=== PATIENT | male | born 1970 | race Caucasian/White ===

== ENCOUNTER 2018-10-23 05:59 | Outpatient (CLI) | payer OTHER ==
[~2018-10-23] VITALS: Ht 185.4 cm; Wt 83.9 kg
[~2018-10-23 05:59] MED LIST: CIPR500S2 PO; FEXO180T84 PO; HYDR-91 PO; HYOS0.1217 PO; METH4TAB PO; PHEN200T27 PO; TRM50T PO
[2018-10-23] MEDS ORDERED: CETI1TAB PO (10:20)
== END 2018-10-23 10:22 | disposition home or self-care (01) ==
LOC: PREOP 05:59
PROVIDERS: ATTEND Surgery
DX: Z01.818 Encounter for other preprocedural examination (principal)

== ENCOUNTER 2018-10-27 10:02 | Day surgery (SDC) | payer OTHER ==
[~2018-10-27] VITALS: Ht 185.4 cm; Wt 83.9 kg
[~2018-10-27 10:02] MED LIST changes: +CETI1TAB PO
--- OUTSIDE RECORDS SUMMARY | 2018-10-27 10:05 | XMS REPORT | Continuity of Care Document ---
Author Organization Unknown Address Unknown Allergies Active Description Code Type Severity Reaction Onset Reported/Identified Relationship to Patient Clinical Status Yes No Known Drug Allergies [id number] Drug Allergy Unknown N/A 11/22/2010 Medications There is no data. Problems Date Dx Coded Attending Type Code Diagnosis Diagnosed By 10/23/2018 JERRELL MONTERO MD Ot Z01.818 ENCOUNTER FOR OTHER PREPROCEDURAL EXAMIN Procedures There is no data. Results There is no data. Encounters ACCT No. Visit Date/Time Discharge Status Pt. Type Provider Facility Loc./Unit Complaint [id number] 10/23/2018 05:59:00 10/23/2018 10:22:00 DIS Outpatient JERRELL MONTERO MD [facility] PREOP COLONOSCOPY [id number] 07/25/2013 19:43:00 07/25/2013 23:59:59 CLS Outpatient [id number] 10/27/2018 10:02:00 ACT Outpatient JERRELL MONTERO MD [facility] ENDO SCREENING
[2018-10-27] MEDS ORDERED: NS IV 500 ML 500 ML ONE (10:07)
[2018-10-27 10:20] VITALS: BP 124/74
[2018-10-27] MEDS ORDERED: fentaNYL INJECTION 100 MCG/2 ML AMP IVP ONE (10:30)
[2018-10-27] MEDS ORDERED: MIDAZOLAM 2 MG/2 ML (VERSED) VIAL IVP ONE (10:30)
[2018-10-27] MEDS ORDERED: LIDOCAINE JELLY 2% 6 ML SYRINGE MM PRN (10:30)
[2018-10-27] MEDS ORDERED: MIDAZOLAM 2 MG/2 ML (VERSED) VIAL ONE ×4 (10:40→10:41)
[2018-10-27] MEDS ORDERED: fentaNYL INJECTION 100 MCG/2 ML AMP ONE ×2 (10:41)
[2018-10-27] MEDS ORDERED: LIDOCAINE JELLY 2% 6 ML SYRINGE ONE (10:42)
--- NOTE | 2018-10-27 10:57 | Progress Note-Pre Operative ---
Pre-Operative Progress Note H&P Reviewed The H&P was reviewed, patient examined and no changes noted. Date Seen by Provider: Oct 27, 2018 Time Seen by Provider: 10: Date H&P Reviewed: Oct 27, 2018 Time H&P Reviewed: :30 Pre-Operative Diagnosis: screening o JERRELL MONTERO MD Oct 27, 2018 10:57
--- NOTE | 2018-10-27 10:57 | Conscious Sedation/ASA ---
Conscious Sedation Pre-Proced Time 10:30 ASA Score 2 For ASA 3 and 4: Consider anesthesia and medical clearance. Also, for patients with a history of failed moderate sedation consider anesthesia. Airway Lungs Heart ASA score ASA 1: a normal healthy patient ASA 2: a patient with a mild systemic disease (mid diabetes, controlled hypertension, obesity ASA 3: a patient with a severe systemic disease that limits activity (angina , COPD, prior Myocardial infarction) ASA 4: a patient with an incapacitating disease that is a constant threat to life (CHF, renal failure) ASA 5: a moribund patient not expected to survive 24 hrs. (ruptured aneurysm) ASA 6: a declared brain- patient whose organs are being harvested. For emergent operations, add the letter E after the classification Mallampati Classification Grade 2 Sedation Plan Analgesia, Amnesia, Plan communicated to team members, Discussed options with patient/fam, Discussed risks with patient/fam The patient is an appropriate candidate to undergo the planned procedure, sedation, and anesthesia. The patient immediately re-assessed prior to indication. JERRELL MONTERO MD Oct 27, 2018 10:57
--- NOTE | 2018-10-27 10:59 | Discharge Inst-Surgical ---
D/C Lap Instructions-[place] Follow Up Activity as tolerated High Fiber Diet 25g or more per day Avoid Alcohol, Caffeine, Spicy [place] and Acid foods. Drink 64 fluid oz or more of fluids per day. Symptoms to Report: Fever over 101 degree F, Nausea/Vomiting If any problems/questions: Contact your physician or go to Emergency Room JERRELL MONTERO MD Oct 27, 2018 10:59
[2018-10-27] MEDS ORDERED: HYDROcodone/APAP 5 MG/325 MG (LORTAB) TAB PO PRN (11:00)
[2018-10-27] MEDS ORDERED: morphine INJ 10 MG/ML 1ML (SYR OR VIAL) IV PRN (11:00)
[2018-10-27] MEDS ORDERED: ONDANSETRON 4 MG/2 ML (SDV) Z0FRAN IV PRN (11:00)
[2018-10-27] MEDS ORDERED: ACETAMINOPHEN 325 MG TABLET PO PRN (11:00)
[2018-10-27] MEDS ORDERED: NS IV 500 ML 500 ML IV PRN (11:00)
[2018-10-27 11:40] VITALS: BP 103/58
--- NOTE | 2018-10-27 12:18 | Progress Note-Post Operative ---
Post-Operative Progess Note Surgeon (s)/Neurology Specialist (s) Surgeon JERRELL MONTERO MD Neurology Specialist: none Pre-Operative Diagnosis screening colo Post-Operative Diagnosis mild chronic stage 2 ext and int hemorrhoids. Procedure & Operative Findings Date of Procedure 10/27/18 Procedure Performed/Findings colonoscopy Anesthesia Type cs Estimated Blood Loss Estimated blood loss (mL): minimal Specimens/Packing Specimens Removed none JERRELL MONTERO MD Oct 27, 2018 12:18
[2018-10-27 12:20] VITALS: BP 117/59
[2018-10-27 12:30] VITALS: BP 117/59
--- NOTE | 2018-10-27 13:11 | OPERATIVE REPORT ---
DATE OF SERVICE: 10/27/2018 ATTENDING PRIMARY CARE PHYSICIAN: Dr. Adkins. PREOPERATIVE DIAGNOSIS: Screening colonoscopy. POSTOPERATIVE DIAGNOSES: Mild chronic stage II external and internal hemorrhoids. Prostate gland was palpable and appeared normal. Remainder of the colon and rectum were normal. PROCEDURE: Colonoscopy. SURGEON: Jerrell Montero MD ANESTHESIA: Conscious sedation. ESTIMATED BLOOD LOSS: Minimal. FINDINGS: Mild chronic stage II external and internal hemorrhoids, not actively edematous nor inflamed and no bleeding. Prostate gland was palpable and appeared normal. Remainder of the rectum and colon were normal. There were no polyps or any neoplasms identified. DISPOSITION: The patient tolerated the procedure well. INDICATIONS: The patient is a 48-year-old male in need of a screening colonoscopy. He has not had a colonoscopy up to this point in his life. For the most part, he is doing well and does not report any major issues with diarrhea nor constipation as well as no red blood per rectum nor any dark tarry stools. He is adopted and does not know his family history. DESCRIPTION OF PROCEDURE: The patient was brought to the endoscopy suite, laid in the left lateral decubitus position. After adequate IV pain and sedative medications and conscious sedation anesthesia, a digital rectal examination was performed. Chronic stage II external and internal hemorrhoids were identified, which were not actively edematous nor inflamed and no bleeding. Normal sphincter tone was felt and there were no palpable masses. Prostate gland was palpable and appeared normal. The endoscope was then intubated into the anus and rectum was gently insufflated. The endoscope was then advanced to the valves of [place] of the rectum with no polyps or any neoplasms identified. We then proceeded through the sigmoid colon where no diverticulosis was identified. The endoscope was then advanced to the remainder of the descending, transverse, ascending colon and the cecum. These segments were normal. There were no polyps or any neoplasms identified throughout the colon or rectum. The endoscope was then slowly withdrawn while taking a second look and suctioning of residual air with no additional findings. The patient tolerated the procedure well. We will recommend medical management with a high fiber diet with at least 30 grams of fiber per day as well as significant amounts of water daily to promote soft stools daily. He does not know any family history of colon cancer due to adoption and if he wishes to proceed with investigating to see if there is or is not a history, he may do so. He may opt to proceed with followup colonoscopies every 5 years versus 10 years with any time in between for symptomatology as well. Job ID: [id number] DocumentID: [id number] Dictated Date: 10/27/2018 11:26:31 Zipper Joiner Date: 10/27/2018 13:10:06 Dictated By: JERRELL MONTERO MD
== END 2018-10-27 12:32 | disposition home or self-care (01) ==
LOC: ENDO 10:02
PROVIDERS: ATTEND Surgery
DX: Z12.11 Encounter for screening for malignant neoplasm of colon (principal); K64.1 Second degree hemorrhoids; I25.2 Old myocardial infarction

== ENCOUNTER → 2020-04-21 | Outpatient (CLI) | payer BC, OTHER | LOC: RAD 08:45 | PROVIDERS: ATTEND Family Medicine | DX: S43.421D Sprain of right rotator cuff capsule, subsequent encounter (principal) ==

== ENCOUNTER → 2022-12-17 | Outpatient (CLI) | payer BC ==
--- NOTE | 2022-12-17 13:41 | Diagnostic Imaging Report ---
PROCEDURE: US Thyroid. TECHNIQUE: Multiple real-time grayscale images were obtained of the thyroid in various projections. INDICATION: Thyromegaly on physical exam. COMPARISON: None. FINDINGS: Both thyroid lobes demonstrate smooth and homogenous background echotexture. Color flow Doppler demonstrates normal and symmetric vascularity bilaterally. The right lobe measures 5.4 cm in length, 2.2 cm AP, and 2.1 cm transverse. The left lobe measures 4.8 cm in length, 2.4 cm AP, and 1.3 cm transverse. The isthmus measures 0.3 cm. A solid hypoechoic nodule with calcified rim is seen in the left lobe of the thyroid measuring 2.2 x 1.6 x 1.4 cm. Increased vascularity is seen surrounding this nodule. IMPRESSION: 1. Nodule in the left lobe of the thyroid measuring 2.2 cm. This nodule is consistent with a TI RADS 4 nodule and based on size criteria thyroid FNA is recommended to further characterize. 2. Thyromegaly. Recommend correlation with TSH levels. Dictated by: Dictated on workstation # [id number]
== END ==
LOC: RAD 12:22
PROVIDERS: ATTEND Nurse Practitioner Family
DX: Z13.6 Encounter for screening for cardiovascular disorders (principal); E01.0 Iodine-deficiency related diffuse (endemic) goiter
CPT/HCPCS: 76536

== ENCOUNTER → 2022-12-17 | Outpatient (CLI) | payer BC, SELFPAY ==
--- NOTE | 2022-12-17 17:17 | Diagnostic Imaging Report ---
EXAMINATION: CT coronary calcium scoring. INDICATION: Cardiovascular screening. TECHNIQUE: High-resolution noncontrast CT imaging was obtained through the chest with particular attention paid to the coronary arteries. Images were analyzed for the presence and extent of coronary artery calcifications using coronary calcium quantification software. All CT scans use one or more of the following dose optimizing techniques: automated exposure control, MA and/or KvP adjustment based on patient size and exam type or iterative reconstruction. FINDINGS: There are no identifiable coronary calcifications. The patient's total coronary calcium score is 0. This is essentially a negative examination and implies a low cardiovascular risk and low likelihood of underlying coronary artery disease. The visualized portion of the aorta normal in caliber. Pulmonary arteries normal in size. There is trace pericardial fluid. The visualized portion of lungs demonstrate no finding of pneumonia or edema. There is no nodule or mass. There is no adenopathy demonstrated. Upper abdomen unremarkable. IMPRESSION: The patient's total coronary calcium score is 0. There were no identifiable coronary calcifications. This is essentially a negative examination and implies a low cardiovascular risk with very low likelihood of underlying hemodynamically significant coronary artery disease. Dictated by: Dictated on workstation # [id number]
== END ==
LOC: RAD 12:23
PROVIDERS: ATTEND Nurse Practitioner Family
DX: Z13.6 Encounter for screening for cardiovascular disorders (principal)
CPT/HCPCS: 75571

== ENCOUNTER → 2022-12-23 | Outpatient (CLI) | payer BC, SELFPAY ==
[~2022-12-23] VITALS: Ht 185.5 cm; Wt 109.1 kg
[~2022-12-23] MED LIST changes: +LIDOCAINE 1% INJ 10 ML VIAL INJ ONE; +LIDOCAINE 1% INJ 10 ML VIAL ONE
--- NOTE | 2022-12-23 11:39 | Diagnostic Imaging Report ---
INDICATION: Left thyroid nodule. Patient presents for ultrasound guided fine needle aspiration. Patient was brought to the procedure room and placed on the table in the supine position. Ultrasound imaging of the left neck was performed to evaluate appropriate entry site. Left neck was then prepped and draped in the usual sterile fashion. Small amount of 1% lidocaine was utilized for local anesthesia. A total of 4 passes were made into the dominant solid peripherally calcified mass in the left lobe of the thyroid utilizing 25-gauge needles and fine-needle aspiration technique. Hemostasis was obtained. Patient tolerated the procedure well and left the department in stable condition. IMPRESSION: Successful ultrasound-guided fine-needle aspiration of the dominant solid nodule left lobe of thyroid. Pathology results are currently pending. Dictated by: Dictated on workstation # [id number]
== END ==
LOC: RAD 10:17
PROVIDERS: ATTEND Nurse Practitioner Family
DX: E04.1 Nontoxic single thyroid nodule (principal)